=== PATIENT | male | born 1955 | race Caucasian/White ===

== ENCOUNTER → 2020-07-05 | Outpatient (CLI) | payer MEDICARE | END | disposition home or self-care (01) | LOC: CFH 12:27 | PROVIDERS: ATTEND Physical Medicine & Rehabilitation Pain Medicine | DX: S22.39XB Fracture of one rib, unspecified side, initial encounter for open fracture (principal); X58.XXXA Exposure to other specified factors, initial encounter; Y93.89 Activity, other specified; Y92.89 Other specified places as the place of occurrence of the external cause; Y99.8 Other external cause status | CPT/HCPCS: 71046 ==

== ENCOUNTER → 2020-11-13 | Outpatient (CLI) | payer MEDICARE, MEDICAID ==
[~2020-11-13] MED LIST: CHOL10003 PO; TAMS-11 PO; turmeric PO
[2020-11-13 16:10] LABS: INTERNATIONAL NORMALIZED RATIO 0.99 (0.93-1.1); PROTHROMBIN TIME 10.6 Seconds (9.6-11.5)
[2020-11-13 16:12] LABS: ANION GAP 10 mmol/L (5-15); CALCIUM 8.9 mg/dL (8.5-10.1); CHLORIDE 105 mmol/L (98-107); CREATININE 0.83 mg/dL (0.7-1.3)
[2020-11-13 16:14] LABS: BASOPHILS % (AUTO) 0 % (0-1); EOSINOPHILS % (AUTO) 2 % (1-7); LYMPHOCYTES % (AUTO) 27 % (22-44); MEAN CORPUSCULAR HGB CONC 34.5 g/dL (33.2-36.2); MEAN PLATELET VOLUME 8.6 fL (7.4-10.4); MONOCYTES % (AUTO) 8 % (2-9); NEUTROPHILS % (AUTO) 63 % (42-75); PLATELET COUNT 159 x10^3/uL (130-400); RED BLOOD COUNT 4.66 x10^6/uL (4.38-5.82); RED CELL DISTRIBUTION WIDTH 13.6 % (9.4-14.8)
[2020-11-13 17:25] LABS: MICROSCOPIC AUTO
== END | disposition home or self-care (01) ==
LOC: STAR 15:02
PROVIDERS: ATTEND Urology
DX: Z01.818 Encounter for other preprocedural examination (principal); N40.1 Benign prostatic hyperplasia with lower urinary tract symptoms; I44.0 Atrioventricular block, first degree; I49.3 Ventricular premature depolarization; R94.31 Abnormal electrocardiogram [ECG] [EKG]; Z20.822 Contact with and (suspected) exposure to COVID-19
CPT/HCPCS: 36415; 80048; 81001; 85025; 85610; 87086; 93005; U0003; U0005

== ENCOUNTER 2020-11-19 14:05 | Day surgery (SDC) | payer MEDICARE, MEDICAID ==
[~2020-11-19] VITALS: Ht 177.8 cm; Wt 99.9 kg
[2020-11-19 14:50] VITALS: BP 133/86
[2020-11-19] MEDS ORDERED: CHLORHEXIDINE 15 ML UDC PO ONE (15:00)
[2020-11-19] MEDS ORDERED: LACTATED RINGERS 1,000 ML IV SCH (15:00)
[2020-11-19] MEDS ORDERED: FENTANYL PF 250 MCG/5ML ONE (15:38)
[2020-11-19] MEDS ORDERED: MIDAZOLAM 1 MG/ML, 2ML ONE (15:38)
[2020-11-19] MEDS ORDERED: DEXAMETHASONE 4 MG/ML, 1ML ONE ×2 (15:42→16:28)
[2020-11-19] MEDS ORDERED: ROCURONIUM 10MG/ML,5ML ONE (16:05)
[2020-11-19] MEDS ORDERED: PROPOFOL 10 MG/ML, 20ML ONE ×2 (16:05)
[2020-11-19] MEDS ORDERED: ONDANSETRON 2MG/ML, 2ML ONE ×2 (16:28)
[2020-11-19] MEDS ORDERED: OPIUM/BELLADONNA SUPP.RECT 16.2-30 MG ONE (16:32)
[2020-11-19] MEDS ORDERED: ACETAMINOPHEN 325 MG TABLET PO PRN ×2 (17:00→19:00)
[2020-11-19] MEDS ORDERED: MIDAZOLAM 1 MG/ML, 2ML IV PRN (17:00)
[2020-11-19] MEDS ORDERED: ALBUTEROL SULFATE 2.5 MG/3 ML NPPB PRN (17:00)
[2020-11-19] MEDS ORDERED: hydrALAzine 20 MG/ML, 1ML IV PRN (17:00)
[2020-11-19] MEDS ORDERED: PROMETHAZINE 25 MG/ML, 1ML IVPush PRN (17:00)
[2020-11-19] MEDS ORDERED: ONDANSETRON 2MG/ML, 2ML IVPush PRN (17:00)
[2020-11-19] MEDS ORDERED: DIPHENHYDRAMINE 50 MG/ML, 1ML IVPush PRN ×2 (17:00)
[2020-11-19] MEDS ORDERED: LORazepam 2 MG/ML, 1ML IVPush PRN (17:00)
[2020-11-19] MEDS ORDERED: LABETALOL 5MG/ML, 20ML IV PRN (17:00)
[2020-11-19] MEDS ORDERED: PROMETHAZINE 12.5 MG SUPP PR PRN (17:00)
[2020-11-19] MEDS ORDERED: DIAZEPAM 5 MG/ML, 2ML IVPush PRN (17:00)
[2020-11-19] MEDS ORDERED: EPHEDRINE 50 MG/ML, 1ML IVPush PRN (17:00)
[2020-11-19] MEDS ORDERED: MEPERIDINE/PF 25MG/0.5ML IVPush PRN (17:00)
[2020-11-19] MEDS ORDERED: HYDROmorphone 1 MG/ML, 1ML INJ IVPush PRN (17:00)
[2020-11-19] MEDS ORDERED: OXYcodone 5 MG/5 ML ORAL.SOL UDC PO PRN (17:00)
[2020-11-19] MEDS ORDERED: FENTANYL PF 100 MCG/2ML ONE (17:34)
[2020-11-19] MEDS ORDERED: OXYcodone 5 MG/5 ML ORAL.SOL UDC ONE (17:34)
[2020-11-19] MEDS: FENTANYL PF 100 MCG/2ML IV PRN ×2 (17:35→17:45)
[2020-11-19] MEDS ORDERED: MEPERIDINE/PF 25MG/ML,1ML ONE (17:53)
== END 2020-11-19 19:12 | disposition home or self-care (01) ==
LOC: OR 14:05
PROVIDERS: ATTEND Urology
DX: N40.1 Benign prostatic hyperplasia with lower urinary tract symptoms (principal); N39.490 Overflow incontinence; R33.8 Other retention of urine; N39.0 Urinary tract infection, site not specified; I10 Essential (primary) hypertension; E66.9 Obesity, unspecified; Z20.822 Contact with and (suspected) exposure to COVID-19; Z68.31 Body mass index [BMI] 31.0-31.9, adult; Z79.899 Other long term (current) drug therapy
CPT/HCPCS: 52601; 87635; 88305; J1100; J2175; J2250; J2405; J2704; J3010; J7120

== ENCOUNTER 2020-11-24 17:46 | Emergency (ER) | payer MEDICAID, MEDICARE ==
[~2020-11-24] VITALS: Ht 177.8 cm; Wt 98.0 kg
--- NOTE | 2020-11-24 18:20 | NUR ---
FIRST CONTACT: "I HAD A PROCEDURE ON THURSDAY, THE CATHETER WAS REMOVED ON THU. I HAVENT BEEN ABLE TO PEE ALL DAY. I'M IN A LOT OF PAIN. I TRIED TO CATH MYSELF 3 OR 4 TIMES AND NOTHING CAME OUT EXCEPT BLOOD" PT WITH STEADY GAIT TO ROOM. POSTIONED TO COMFORT. ATTACHED TO MONITORS. VSS. PT BLADDER SCANNED 200 CC ON SCANNER. PT ATTEMPTED TO URINITATE BUT UNABLE TO . C/O BLADDER PAIN. ABBOTT INSERTED ORDERD
[2020-11-24 18:30] LABS: BASOPHILS % (AUTO) 0 % (0-1); EOSINOPHILS % (AUTO) 1 % (1-7); LYMPHOCYTES % (AUTO) 25 % (22-44); MEAN CORPUSCULAR HEMOGLOBIN 32.4 pg (27.5-34.5); MEAN CORPUSCULAR HGB CONC 34.6 g/dL (33.2-36.2); MONOCYTES % (AUTO) 8 % (2-9); NEUTROPHILS % (AUTO) 65 % (42-75); PLATELET COUNT 184 x10^3/uL (130-400); RED BLOOD COUNT 4.62 x10^6/uL (4.38-5.82); RED CELL DISTRIBUTION WIDTH 14.2 % (9.4-14.8)
[2020-11-24 18:31] LABS: MICROSCOPIC AUTO
[2020-11-24 18:39] LABS: ALANINE AMINOTRANSFERASE 61 U/L (12-78); ALBUMIN 3.7 g/dL (3.4-5.0); ANION GAP 6 mmol/L (5-15); CALCIUM 8.7 mg/dL (8.5-10.1); CHLORIDE 109 mmol/L (98-107); CREATININE 1.19 mg/dL (0.7-1.3)
[2020-11-24 18:41] LABS: ALKALINE PHOSPHATASE 77 U/L (45-117); BILIRUBIN,TOTAL 0.8 mg/dL (0.2-1.0); TOTAL PROTEIN 7.3 g/dL (6.4-8.2)
--- NOTE | 2020-11-24 18:55 | NUR ---
BEDSIDE REPORT TO ABBY GOODSON.
--- NOTE | 2020-11-24 18:59 | NUR ---
report from warner harding
[2020-11-24 19:27] VITALS: BP 122/62
== END 2020-11-24 20:21 | disposition home or self-care (01) ==
LOC: ED 20:15
DX: N40.1 Benign prostatic hyperplasia with lower urinary tract symptoms (principal); R33.8 Other retention of urine
CPT/HCPCS: 36415; 51702; 80053; 81001; 85025; 87086; 99284